=== PATIENT | male | born 1970 | race Caucasian/White ===

== ENCOUNTER 2018-02-27 19:40 | Emergency (ER) | payer BC, SELFPAY ==
[2018-02-27 19:42] VITALS: BP 138/71; PULSE 72; RESP 20; TEMP 36.1; O2SAT 96; BMI 27.2
--- NOTE | 2018-02-27 20:21 | ED.VISSUMM ---
- ER Visit Summary Date of Service: 02/27/18 Chief Complaint: Atraumatic posterior right heel pain for the past 2 days History of Present Illness: The patient is a 47 M who was seen earlier today at the [facility] urgent care center. He states x-rays were obtained and he was told the x-rays are negative. He was prescribed prednisone and ibuprofen. Apparently the prescription for ibuprofen was not called in. He was informed that he could take 4 Advil tablets and that would be equivalent to the prescription strength. He denies fever, chills night sweats. He denies history of gout or pseudogout. He states he is wearing tennis shoes because he cannot put on his work boots. He states he always wears his work boots. He denies any paresthesia, anesthesia motor weakness. He denies any symptoms of claudication. Physical Examination: Vital signs are noted remarkable for a blood pressure 138/71. He does appear uncomfortable. There is no swelling or discoloration of the right ankle or foot. There is no pain no patient over the lateral or medial malleolus. There is no pain the patient over the base of the fifth metatarsal. There is no pain the patient over the plantar surface of the foot to suggest a plantar fasciitis. Forced dorsiflexion does not cause discomfort. He does have pain to palpation over the insertion site of the Achilles tendon. Forced dorsiflexion causes and pain posteriorly. DP and PT pulses are palpable. He does have hair on his toes. Test Results: No tests were obtained. Per patient report x-ray performed at urgent care was negative. Emergency Department Course and Treatment: Patient was given pain medicine and instructed to take the prednisone he was prescribed and 4 Advil every 8 hours. Treatment Plan: Rest, ice and elevation and nonweightbearing. Patient arrived with crutches. Disposition: Discharged to home with outpatient follow-up if no improvement in 24-48 hours Impression: Right Achilles tendinitis This note was generated with [employer] dictation software. It may contain incorrect words, spelling, and punctuation that were not noted in review of the chart prior to signing ED Disposition - Plan for ED Patient: Disposition: Home or Assisted Living Chief Complaint: Lower Extremity Injury Instructions: What Is Tendinitis of the Foot? Referrals: NOT,DEFINED [Primary Care Provider] - Mary Lovelace PA [PHYSICIAN DUST MILL OPERATOR] - 3-5 Days if not improving Additional Instructions: And rest right ankle/foot for the next several days. Do not weight-bear for the next 48-72 hours. If no improvement after 3-5 days follow-up with Rickey Lovelace or Dr. Gerry Gusman
--- NOTE | 2018-02-27 20:26 | ED.DCSUM_ITS ---
- ER Visit Summary Date of Service: 02/27/18 Chief Complaint: Atraumatic posterior right heel pain for the past 2 days History of Present Illness: The patient is a 47 M who was seen earlier today at the [facility] urgent care center. He states x-rays were obtained and he was told the x-rays are negative. He was prescribed prednisone and ibuprofen. Apparently the prescription for ibuprofen was not called in. He was informed that he could take 4 Advil tablets and that would be equivalent to the prescription strength. He denies fever, chills night sweats. He denies history of gout or pseudogout. He states he is wearing tennis shoes because he cannot put on his work boots. He states he always wears his work boots. He denies any paresthesia, anesthesia motor weakness. He denies any symptoms of claudication. Physical Examination: Vital signs are noted remarkable for a blood pressure 138/ 71. He does appear uncomfortable. There is no swelling or discoloration of the right ankle or foot. There is no pain no patient over the lateral or medial malleolus. There is no pain the patient over the base of the fifth metatarsal. There is no pain the patient over the plantar surface of the foot to suggest a plantar fasciitis. Forced dorsiflexion does not cause discomfort. He does have pain to palpation over the insertion site of the Achilles tendon. Forced dorsiflexion causes and pain posteriorly. DP and PT pulses are palpable. He does have hair on his toes. Test Results: No tests were obtained. Per patient report x-ray performed at urgent care was negative. Emergency Department Course and Treatment: Patient was given pain medicine and instructed to take the prednisone he was prescribed and 4 Advil every 8 hours. Treatment Plan: Rest, ice and elevation and nonweightbearing. Patient arrived with crutches. Disposition: Discharged to home with outpatient follow-up if no improvement in 24-48 hours Impression: Right Achilles tendinitis This note was generated with [employer] dictation software. It may contain incorrect words, spelling, and punctuation that were not noted in review of the chart prior to signing ED Disposition - Plan for ED Patient: Disposition: Home or Assisted Living Chief Complaint: Lower Extremity Injury Instructions: What Is Tendinitis of the Foot? Referrals: NOT,DEFINED [Primary Care Provider] - Mary Lovelace PA [PHYSICIAN 911 OPERATOR] - 3-5 Days if not improving Additional Instructions: And rest right ankle/foot for the next several days. Do not weight-bear for the next 48-72 hours. If no improvement after 3-5 days follow-up with Rickey Lovelace or Dr. Gerry Gusman
--- NOTE | 2018-02-27 20:28 | ED.DCSUM_ITS ---
- ER Visit Summary Date of Service: 02/27/18 Chief Complaint: [] History of Present Illness: The patient is a 47 M [] Physical Examination: [] Test Results: [] Emergency Department Course and Treatment: [] Treatment Plan: [] Disposition: [] Impression: [] This note was generated with [employer] dictation software. It may contain incorrect words, spelling, and punctuation that were not noted in review of the chart prior to signing ED Disposition - Plan for ED Patient: Disposition: Home or Assisted Living Chief Complaint: Lower Extremity Injury Instructions: What Is Tendinitis of the Foot? Referrals: NOT,DEFINED [Primary Care Provider] - Mary Lovelace PA [PHYSICIAN INSULATION MANAGER] - 3-5 Days if not improving Additional Instructions: And rest right ankle/foot for the next several days. Do not weight-bear for the next 48-72 hours. If no improvement after 3-5 days follow-up with Rickey Lovelace or Dr. Gerry Gusman
[2018-02-27] MEDS: Ibuprofen 400 MG Tablet 800 MG PO (20:51)
[2018-02-27] MEDS: HYDROcodone Bitartrate/Apap 5/325 Tablet PO (20:51)
--- NOTE | 2018-02-27 20:56 | NURSING ---
pt given written and verbal discharge instructions. pt verbalizes understanding. work note given . pt educated not to drive 4-6 hours after having narcotic medication. pt reports friend is driving home. pt ambulates with crutches from home without difficulty.
== END 2018-02-27 20:58 | disposition home or self-care (01) ==
PROVIDERS: Emergency Provider Emergency Medicine; Family Provider Physician Assistant; PCP Physician Assistant
DX: M76.61 Achilles tendinitis, right leg (principal)
CPT/HCPCS: 99283

== ENCOUNTER 2020-01-17 18:16 | Emergency (ER) | payer BC, SELFPAY ==
[2020-01-17 18:17] VITALS: BP 135/74; PULSE 88; RESP 16; TEMP 36.7; O2SAT 96; BMI 25.8
--- NOTE | 2020-01-17 18:25 | RAD_ITS ---
STUDY: X-RAY CHEST REASON FOR EXAM: Male, 49 years old. CHEST PAIN. FEELS LIKE SOMETHING IS STUCK AND WONT GO DOWN TECHNIQUE: PA and lateral views of the chest. COMPARISON: April 10, 2015 FINDINGS: There is artifact from clothing overlying the patient The lungs are clear and expanded. There is no demonstrated pleural abnormality. Normal size heart. Normal mediastinum and torrie. Normal visualized pulmonary arteries. Normal visualized aortic arch and descending thoracic aorta. There is an increased kyphosis of the thoracic spine. Normal visualized ribs, clavicles, and shoulders. There is no demonstrated abnormality of the visualized soft tissue structures of the upper abdomen. RAD/Chest PA and Lateral IMPRESSION: No acute cardiopulmonary disease. Electronically Signed: Silvino Mei MD at 19:15 EST , Service support ,
[2020-01-17 20:16] VITALS: BP 132/72; PULSE 76; RESP 17; O2SAT 97
--- NOTE | 2020-01-17 21:35 | ED.DCSUM_ITS ---
- ER Visit Summary Date of Service: 01/17/20 Chief Complaint: Difficulty swallowing History of Present Illness: The patient is a 49 M who reports that 2 days ago he was eating pizza and had the abrupt onset of difficulty swallowing. States it feels like something is lodged in his lower esophagus and that things are going through. States that he has not vomited anything up. However, he has severe pain anytime he tries to drink or eat anything. States that he does have burning pain is 2-10 currently and 10 out of 10 when he tries to eat. Nothing seems to make this better. Physical Examination: Vitals: Stable. Afebrile. General: Well-nourished and well-developed. Head: Normocephalic atraumatic. Neck: Supple, no lymphadenopathy. No JVD. Nontender. Cardiovascular: Regular rate and rhythm. No murmurs. Respiratory: No respiratory distress. Clear to auscultation bilaterally. Abdominal: Soft, nontender, nondistended, normal bowel sounds. No guarding, rebound, or peritoneal signs. Back: Nontender. Extremities: Nontender, no edema. Skin: Normal color, no rash. Neurologic: Alert and oriented ?3. Cranial nerves II through XII are intact. Normal strength and sensation. Psych: Normal affect. Test Results: Clinical Impression(s) from Imaging Studies Chest X-Ray 01/17/20 18:25 IMPRESSION: No acute cardiopulmonary disease. Electronically Signed: Silvino Mei MD at 19:15 EST , Service support , Emergency Department Course and Treatment: Patient was treated with a dose of Protonix. Treatment Plan: Patient was discussed with Dr. Ramos. He states just that the patient be discharged on Prilosec and a liquid diet for 2 days. He will see him in the office and do endoscopy if he remains symptomatic. Patient is happy with this plan. Disposition: To home in improved and stable condition. Impression: 1. Esophagitis. This note was generated with [employer] software. It may contain incorrect words, spelling, and punctuation that were not noted in review of the chart prior to signing ED Disposition - Plan for ED Patient: Disposition: Home or Assisted Living Instructions: Esophagitis Prescriptions: Omeprazole [Prilosec] 40 mg PO DAILY #30 cap Prescription Printed Referrals: Zachary Ramos MD [STAFF PHYSICIAN] - As soon as possible
[2020-01-17 22:25] VITALS: BP 135/76; PULSE 80; RESP 16; O2SAT 97
[2020-01-17] MEDS: Pantoprazole Sodium 40 MG Tablet PO (22:27)
== END 2020-01-17 22:25 | disposition home or self-care (01) ==
PROVIDERS: Emergency Provider Emergency Medicine; PCP Physician Assistant
DX: K20.9 Esophagitis, unspecified (principal)
CPT/HCPCS: 71046; 99283

== ENCOUNTER 2020-01-20 08:23 | Day surgery (SDC) | payer BC, SELFPAY ==
[2020-01-20] VITALS (7 sets, daily range): BP systolic 80–113; BP diastolic 52–79; PULSE 73–84; RESP 16–18; TEMP 36.3–37.2; O2SAT 94–100; BMI 25.9
[2020-01-20] MEDS: Lactated Ringers 1,000 ML 100 ML IV (08:59)
--- NOTE | 2020-01-20 09:29 | HP.PCM_ITS ---
History of Present Illness Date of Admission: 01/20/20 The patient is a 49 year old M who was in the ER this week after feeling food getting stuck in his chest. He reports that food felt stuck 1 time and then slowly went away and since then every time he is eating it hurts in his substernal region. He does have chronic acid reflux. He has never had an EGD. He says that his father had esophageal cancer at age 48. He did get prescribed a PPI by the emergency room he says that has helped. Past Medical/Surgical History - Planned Operation Planned Operative Procedure/s: egd Date of Operative Procedure: 01/20/20 Permit Signed: No S.O.S: No Is This Patient Having a Total Joint: No - Previous Hospitalizations/Surgeries HX Hospitalizations: No HX of Surgeries: wisdom teeth Any Problems With Anesthesia: No You/Your Family Experience Fever (Hyperthermia) With Anes: No Cholinesterase deficiency: No - Cardiovascular Hx Chest Pain within Last 2 months: Yes - pressure with eating and reflux Hx of Irregular Heartbeat and/or Afib: No Hx Heart Attack: No Hx Congestive Heart Failure: No Hx Rheumatic Fever: No Hx Hypertension: No Hx Internal Defibrillator: No Hx Pacemaker: No Hx Cardiac Catheterization: No Hx Cardiac Surgery/Stents/Etc.: No Hx Stress Test: No HX Edema: No Hx Pain in Legs when Walking/Leg Cramps: No - Respiratory Chronic Cough: No HX of Shortness of Breath: No Hoarseness: No Hx Chronic Obstructive Pulmonary Disease (COPD): No Hx Asthma: No Hx Emphysema: No Hx Sleep Apnea: No Hx Oxygen Use at Home: No Hx Respiratory Tract Infection/Cold (presently): No Do You Snore Loudly (louder than talking or can be heard): No Do You Often Feel Tired/ Fatigued/ Sleepy Dring Daytime?: No Has Anyone Observed You Stop Breathing During Sleep?: No Result (for STOP score): Negative Hx Smoking: Yes Smoking Status: Current some day smoker - Gastrointestinal Hx Gastroesophageal Reflux: Yes Controlled With Meds: Yes - at times Hx Gastrointestinal Disorders: No Hx Gastrointestinal Bleed: No Hx Ulcer: No Hx Hiatal Hernia: No Difficulty Chewing/Swallowing: Yes - troubles with swallowing Recent Onset of Swallowing Problems: No Special diet followed at home: No Hx Unplanned Weight Loss of 20#: No HX Unplanned Weight Gain of 20#: No - Neurological Hx Seizures: No HX Syncope/Blackout Spells/Unconsciousness: No Hx CVA/Stroke: No Hx Transient Ischemic Attacks (TIA): No Hx Multiple Sclerosis: No Hx Parkinson's Disease: No Hx Head/Neck Injury: No Hx Headaches: No Hx Back Injury/Pain: No Recent Onset of Speech Difficulty: No Restless Legs: No Does patient have nerve stimulator: No Patient instructed to have device shut off: No Rep notified?: No - Blood Disorder Hx Leukemia: No Bleeding Tendencies: No Hx Deep Vein Thrombosis: No Hx High Cholesterol: No Blood Transmitted Disease: No Hx Hepatitis: No Hx Cirrhosis: No Hx Anemia: No Hx Blood Disorders: No - Genitourinary Hx Renal Disease: No - Musculoskeletal Hx Arthritis: No Hx Rheumatoid Arthritis: No Hx Gout: No Recent Onset of an Orthopedic Problem: No - Endocrine Hx Diabetes: No Thyroid Disease: No Hx Steroid Therapy: No - Psycho/Social Hx Substance Use: No Hx Alcohol Use: No Hx Anxiety: No Hx Depression: No Mental Illness: No Hx Dementia: No - Miscellaneous Hx Cancer: No Recent Exposure to Contagious Disease: No Active MRSA: No Hx of C-Diff: No Any Loose Teeth: No Allergies erythromycin base Allergy (Verified 01/20/20 08:43) Rash morphine Adverse Reaction (Verified 01/20/20 08:43) nausea,vomiting - Discharge Is Pt Admitted From a [facility], or a Senior Care: No Who Could Help: family After D/C, Where Do you Plan to Go: Return Home - Physical Exam Vitals/I&O's: Vital Signs Temp Pulse Resp BP Pulse Ox 98.9 F 84 18 113/79 100 01/20/20 08:49 01/20/20 08:49 01/20/20 08:49 01/20/20 08:49 01/20/20 08:49 Oxygen Delivery Method Room Air Weight: 180 lb 5.41 oz Body Mass Index (BMI) 25.9 General: Alert, Oriented x3 Neck: No JVD Lungs: Normal air movement Cardiovascular: Regular rate, Regular Rhythm Abdomen: Soft, Non Tender, Non-Distended Current Medications Lactated Ringer's () 1,000 mls @ 100 mls/hr IV .Q10H ROSA Last Admin: 01/20/20 08:59 Dose: 100 mls/hr Documented by: Assessment/Plan 49-year-old male with dysphasia 1. I recommended EGD and possible dilation if he does have a Schatzki's ring or stricture. I informed that I will also do biopsies if there is any sort of mass. 2. I explained endoscopy in detail to the patient. I explained the risks including but not limited to stroke or heart attack with anesthesia, perforation of the GI tract, bleeding, infection. I explained that any of these could necessitate further emergency surgery. The patient understands and all questions were answered sufficiently. The patient wishes to proceed with procedure. Zachary Ramos MD Pager: [facility] [address] [place] [address] [address] [place] [address] Office: Surgery Risks - Colonoscopy Risks Include but are not Limited To: Risks include but are not limited to: Bleeding, perforation requiring further surgery, inability to complete colonoscopy requiring barium enema.
--- NOTE | 2020-01-20 09:30 | EGD_PTH ---
PATIENT: CE MORRIS LOC: EN U#:[id number] AGE/SX: 49/M ROOM: RE01/20/[address]: Dr. Zachary Ramos MD : 1970 BED: DIS: 01/20/2020 SPEC #: [id number] RECD: 01/20/20 13:23 STATUS: SOPHIA ROSSI #: [id number] ROSE MARY: 01/20/20 09:[address]: Zachary Ramos DEPT: SURGICAL PATHOLOGY RECD BY: Thierno Flores ENTERED: 01/20/20 13:43 SP TYPE: EGD BIOPSY OTHR DR: LISSY Wright Tissues: A - Gastric mucous membrane B - Gastric mucous membrane Procedures: Special Stain Group II Special Stain Group I Surgery Specimen Level IV GMS Stain (control) Alcian Blue/PAS (control) HEADER OPERATION: EGD ([facility]) PRE-OP DIAGNOSIS: History of food stuck in esophagus TISSUE SUBMITTED: A - Antrum biopsy for histo and H. pylori, B - GE junction biopsy MICROSCOPIC DIAGNOSIS A. Gastric antrum, biopsy: Chronic gastritis with focal chronic active gastritis. See comment. B. Gastroesophageal junction, biopsy: Ulceration with associated acute and chronic inflammation and granulation. Focal intestinal metaplasia. No evidence of dysplasia. Focal changes of reflux. Negative for fungal organisms. See comment. AM:altaf 01/23/20 COMMENT A. The results of immunohistochemistry for Helicobacter pylori will be reported separately ([id number]). B. GMS stain with matched control supports the above diagnosis. Alcian blue/PAS stain with matched control supports the above diagnosis. Immunohistochemistry ([id number]) supports the above diagnosis. MICROSCOPIC DESCRIPTION Slides are reviewed. GROSS DESCRIPTION A - Received in fixative is one container labeled with the patient's name and designated antrum biopsy. The specimen consists of two irregular fragments of light friedman soft tissue that in aggregate measure 0.5 x 0.5 x 0.1 cm. The specimen is totally submitted in one cassette. B - Received in fixative is one container labeled with the patient's name and designated GE junction biopsy. The specimen consists of multiple irregular fragments of light friedman soft tissue that in aggregate measure 2 x 0.5 x 0.1 cm. The specimen is totally submitted in one cassette. / MARILEE:altaf 01/20/20 TC:2 CPT: 44906 x2, 59761, 68897
--- NOTE | 2020-01-20 09:30 | IMM_PTH ---
PATIENT: CE MORRIS LOC: EN U#:[id number] AGE/SX: 49/M ROOM: RE01/20/[address]: Dr. Zachary Ramos MD : 1970 BED: DIS: 01/20/2020 SPEC #: [id number] RECD: 01/20/20 14:56 STATUS: SOPHIA ROSSI #: [id number] ROSE MARY: 01/20/20 09:[address]: Zachary Ramos DEPT: IMMUNOHISTOCHEMISTRY RECD BY: Sarah Morris ENTERED: 01/20/20 14:56 SP TYPE: IMMUNO OTHR DR: LISSY Wright Tissues: A - Stomach, NOS B - Gastric mucous membrane Procedures: H Pylori (initial) P53 (initial) KI-67 (add) PHYSICIAN & INSTITUTION [place] [id number] SPECIMEN INFORMATION: Tissue Source: A - Antrum biopsy, B - GE junction biopsy Clinical Info: History of food stuck in esophagus Specimen Number: [id number] A & B CPT code: 60766 x2, 26351 METHODOLOGY: Deparaffinized sections of prefer/formalin-fixed tissue or PAP/DQ stained slides are incubated with monoclonal/polyclonal antibodies/oligonucleotide probes. Localization is made via biotin free immunoperoxidase method. Appropriate controls are performed and reacted as expected. Results on target cell population are indicated in the following table: RESULTS: ANTIBODY / CLONE RESULT Block A H Pylori (polyclonal) negative Block B P53 (DO-7) negative Ki-67 (30-9) negative These tests were developed and their performance characteristics determined by [facility]. They may not have been cleared or approved by the U.S. Food and Drug Administration. The FDA has determined that such clearance or approval is not necessary. The above immunohistochemical/dualISH markers are ordered and reviewed by the pathologist. INTERPRETATION: A. Antrum biopsy: Negative for Helicobacter pylori organisms. B. Gastroesophageal junction biopsy: No evidence of dysplasia. AM:altaf 01/24/20
--- NOTE | 2020-01-20 09:57 | OP.EGD_ITS ---
Patient Name: Ward Muller Procedure Date: 01/20/2020 9:32 AM Date of : 1970 Age: 49 Procedure: Upper GI endoscopy Indications: Dysphagia Providers: Zachary Ramos MD Referring MD: Zachary Ramos MD Medicines: Monitored Anesthesia Care Patient Profile: This is a 49 year old male. Refer to note in patient chart for documentation of history and physical. Complications: No immediate complications. Estimated blood loss: Minimal. Procedure: Pre-Anesthesia Assessment: - Prior to the procedure, a History and Physical was performed, and patient medications and allergies were reviewed. The patient's tolerance of previous anesthesia was also reviewed. The risks and benefits of the procedure and the sedation options and risks were discussed with the patient. All questions were answered, and informed consent was obtained. Prior Anticoagulants: The patient has taken no previous anticoagulant or antiplatelet agents. After reviewing the risks and benefits, the patient was deemed in satisfactory condition to undergo the procedure. After obtaining informed consent, the endoscope was passed under direct vision. Throughout the procedure, the patient's blood pressure, pulse, and oxygen saturations were monitored continuously. The gastroscope was introduced through the mouth, and advanced to the second part of duodenum. The upper GI endoscopy was accomplished without difficulty. The patient tolerated the procedure well. Scope In: 9:44:49 AM Scope Out: 9:52:16 AM Total Procedure Duration Time 0 hours 7 minutes 27 seconds Findings: Few superficial esophageal ulcers with no bleeding and no stigmata of recent bleeding were found. Biopsies were taken with a cold forceps for histology. A 5 cm hiatal hernia was present. The examined duodenum was normal. Biopsies were taken with a cold forceps in the gastric antrum for Helicobacter pylori testing. Impression: - Non-bleeding esophageal ulcers. Biopsied. - 5 cm hiatal hernia. - Normal examined duodenum. Recommendation: - Discharge patient to home. - Resume previous diet. - Continue present medications. - Await pathology results. - Return to my office in 2 weeks. Procedure Code(s): --- Professional --- 71225, Esophagogastroduodenoscopy, flexible, transoral; with biopsy, single or multiple Diagnosis Code(s): --- Professional --- K22.10, Ulcer of esophagus without bleeding K44.9, Diaphragmatic hernia without obstruction or gangrene R13.10, Dysphagia, unspecified CPT copyright 2017 [employer]. All rights reserved. The codes documented in this report are preliminary and upon precision farming specialist review may be revised to meet current compliance requirements. Zachary Ramos MD 01/20/2020 9:56:51 AM This report has been signed electronically. Number of Addenda: 0 Note Initiated On: 01/20/2020 9:32 AM
--- NOTE | 2020-01-20 09:57 | OP.CCLET_ITS ---
01/20/2020 Mary Lovelace Re : Upper GI endoscopy procedure for Ward Muller Dear Raud This procedure was performed on Monday, January 20, 2020. My impressions and recommendations are as follows: Impressions : - Non-bleeding esophageal ulcers. Biopsied. - 5 cm hiatal hernia. - Normal examined duodenum. Recommendations : - Discharge patient to home. - Resume previous diet. - Continue present medications. - Await pathology results. - Return to my office in 2 weeks. My findings are described in the full procedure note, which is enclosed. If I can be of further assistance, please feel free to contact me at Doctor phone number(s): , Work: . Sincerely, Zachary Ramos MD 01/20/2020 9:56:51 AM This report has been signed electronically.
== END 2020-01-20 11:15 | disposition home or self-care (01) ==
LOC: EN 08:24 → AC 08:27
PROVIDERS: PCP Physician Assistant; Referring Provider Surgery; Visit Provider Surgery
PROC: 0DJ08ZZ Inspection of Upper Intestinal Tract, Via Natural or Artificial Opening Endoscopic (ICD-10-PCS; CPT 43235; principal; 2020-01-20 09:25)
DX: K22.10 Ulcer of esophagus without bleeding (principal); K29.50 Unspecified chronic gastritis without bleeding; R13.10 Dysphagia, unspecified; K44.9 Diaphragmatic hernia without obstruction or gangrene; K21.9 Gastro-esophageal reflux disease without esophagitis; Z79.899 Other long term (current) drug therapy; Z88.1 Allergy status to other antibiotic agents; Z80.0 Family history of malignant neoplasm of digestive organs
CPT/HCPCS: 43239; 88305; 88312; 88313; 88341; 88342; J7120; J2405

== ENCOUNTER 2023-10-18 01:41 | Emergency (ER) | payer BC, SELFPAY ==
[2023-10-18 01:41] VITALS: BP 153/98; PULSE 74; RESP 16; TEMP 36.2; O2SAT 98; BMI 26.5
--- NOTE | 2023-10-18 01:54 | EX.ED.UPPERE ---
HPI History of Present Illness Chief Complaint: Laceration Informant: patient Narrative Narrative: Several hrs prior to arrival patient states he was pulling ductwork through a floor down below, there is a screw underneath that he did not see, and as he was pulling his hand through it tore a laceration in his right hand and has had significant bleeding since. No other injuries. He initially put Steri-Strips on it but it would not quit bleeding. Tetanus Immunization: >10 years PFSH PFS Home Medications omeprazole 20 mg capsule,delayed release 40 mg (2 x 20 mg) PO DAILY #30 caps 01/17/20 [Rx Last Taken 01/20/20 06:00] sucralfate 1 gram tablet 1 gm PO ACHS #120 tabs 01/20/20 [Rx Last Taken Unknown] Allergy/AdvReac Type Severity Reaction Status Date / Time erythromycin base Allergy Rash Verified 10/18/23 01:42 morphine AdvReac nausea,vomi Verified 10/18/23 01:42 ting Social History Smoking Status: Never smoker ROS ROS ED Constitutional Constitutional ED: Denies chills or fever(s) Musculoskeletal Musculoskeletal: Reports extremity pain; Denies neck pain Integumentary Reports laceration; Denies Abrasions or rash Neurologic Neurologic: Denies paresthesias or weakness EXAM Physical Exam Const Vital Signs: 10/18/23 01:41 Temperature 97.1 F L Temperature Source Temporal Pulse Rate 74 Respiratory Rate 16 Blood Pressure 153/98 H Blood Pressure Mean 116 Pulse Ox 98 Oxygen Delivery Method Room Air Positive well nourished and well developed General Appearance ED: well developed and NAD Neck full ROM and supple Back/Spine normal ROM and normal to inspection Extremity Extremity Narrative: 3.5 cm laceration to the proximal aspect of the volar right thenar eminence, no bony involvement, brisk oozing of venous blood, which stops with pressure being applied distal to the laceration. Neurovascular intact distally all digits including the thumb, full range of motion including opposition. No arteriolar bleeding. No other injuries. Neuro oriented x3, no focal motor deficits and no sensory deficits noted Sensorium / Orientation: alert Psych mental status grossly normal and thought process normal Skin Skin Narrative: Clean curvilinear laceration to the base of the right thenar eminence of the hand see above Rashes: no rashes MDM MDM MDM Narrative Medical decision making narrative: Wound was repaired see the procedure note, given appropriate discharge instructions for removal and care, his tetanus was updated, all questions answered. Patient was into some of the thenar eminence musculature but just barely, no major injury there or hematoma, no tendon involvement here. No foreign material seen in the wound to warrant antibiotics. Procedures Lacerations R hand: Length: 3.5 cm Depth: Muscle (no tendon involvement) Shape: curvilinear Prep: Sterile Conditions and Chlorhexadine Laceration repair: Irrigated, Lidocaine with epi (1%, 1.5cc), Local and Skin sutures Irrigated (ml): 120 (sterile saline under pressure) Number of Sutures/Alexis: 5 Suture Information: Ethilon and 5-0 Comment: Good hemostasis Discharge Plan Triage Chief Complaint: Laceration ED Provider: Silvino Warren Dx/Rx/DC Orders Clinical Impression: Immunization, tetanus-diphtheria, Laceration of hand, right Instructions: ED Laceration, Hand: All Closures Prescriptions: No Action omeprazole 20 MG capsule 40 mg PO DAILY Qty: 30 0RF sucralfate 1 GM tablet 1 gm PO ACHS Qty: 120 0RF Primary Care Provider: Mary Lovelace Referrals: Mary Lovelace PA [Primary Care Provider] - 10 Day for suture removal Disposition Disposition: Home, Self Care
[2023-10-18] MEDS: Diphth,Pertuss(Acell),Tet Vac 0.5 ML Vial IM (02:27)
[2023-10-18] MEDS: Lidocaine 1% /Epi 1:100 (20ml) 20 ML Vial INFILT (02:30)
== END 2023-10-18 02:36 | disposition home or self-care (01) ==
LOC: ED 02:21
PROVIDERS: Emergency Provider Emergency Medicine; PCP Physician Assistant; Visit Provider Emergency Medicine
DX: S61.411A Laceration without foreign body of right hand, initial encounter (principal); Z23 Encounter for immunization; W26.8XXA Contact with other sharp object(s), not elsewhere classified, initial encounter
CPT/HCPCS: 12002; 90715; 99283